=== PATIENT | male | born 1990 | race Hispanic/Latino ===

== ENCOUNTER 2018-02-13 14:39 | Emergency (ER) | payer OTHER ==
[~2018-02-13] VITALS: Ht 180.3 cm; Wt 95.3 kg
[2018-02-13 15:10] VITALS: BP 133/74
== END 2018-02-13 16:21 | disposition admitted as inpatient to this hospital (09) ==
LOC: ERH 14:39
DX: L02.211 Cutaneous abscess of abdominal wall (principal)